=== PATIENT | male | born 1990 | race Hispanic/Latino ===

== ENCOUNTER 2019-04-03 14:11 | Emergency (ER) | payer SELFPAY ==
[2019-04-03] MEDS ORDERED: KETOROLAC TROMETHAMINE 60 MG/2 ML VIAL ONE (15:02)
== END 2019-04-03 16:31 | disposition home or self-care (01) ==
LOC: EDH 14:11
DX: M25.519 Pain in unspecified shoulder (principal); Z90.49 Acquired absence of other specified parts of digestive tract; Z87.891 Personal history of nicotine dependence
CPT/HCPCS: 71046; 93005; 96372; 99284; J1885

== ENCOUNTER 2021-08-29 10:26 | Emergency (ER) | payer BC ==
[~2021-08-29] VITALS: Ht 172.7 cm; Wt 111.1 kg
[2021-08-29] MEDS ORDERED: KETOROLAC 30MG VIAL (30MG/ML) ONE (11:08)
[2021-08-29] MEDS ORDERED: KETOROLAC 30MG VIAL (30MG/ML) IM SCH (11:30)
[2021-08-29] MEDS ORDERED: IBUP-2070 PO (12:15)
[2021-08-29 12:19] VITALS: BP 133/69
== END 2021-08-29 12:29 | disposition home or self-care (01) ==
LOC: EDH 10:26
DX: S60.221A Contusion of right hand, initial encounter (principal); S60.211A Contusion of right wrist, initial encounter; Z90.89 Acquired absence of other organs; Z98.890 Other specified postprocedural states; W55.42XA Struck by pig, initial encounter; Y93.89 Activity, other specified; Y92.89 Other specified places as the place of occurrence of the external cause; Y99.8 Other external cause status
CPT/HCPCS: 29125; 73110; 73130; 96372; 99284; J1885